=== PATIENT | male | born 1955 | race Caucasian/White ===

== ENCOUNTER → 2019-04-24 11:53 | Outpatient (CLI) | payer BC, MEDICARE, SELFPAY ==
[2019-04-24 12:50] LABS: BUN Creatinine Ratio 13.5 (6-22); Blood Urea Nitrogen 31 mg/dL (9-20); Calcium 9.4 mg/dL (8.4-10.2); Carbon Dioxide 24 mmol/L (22-32); Chloride 104 mmol/L (98-107); Estimated Glomerular Filt Rate 28.7 mL/min (>60); Glucose 236 mg/dL (80-110); HEMOLYSIS < 15 (0-50); Sodium 138 mmol/L (137-145)
== END ==
PROVIDERS: Visit Provider Nurse Practitioner
DX: I50.9 Heart failure, unspecified (principal)
CPT/HCPCS: 36415; 80048